=== PATIENT | female | born 1990 | race American Indian/Alaskan Native ===

== ENCOUNTER 2021-03-06 13:49 | Outpatient (CLI) | payer MEDICAID ==
[2021-03-06] MEDS ORDERED: LACTATED RINGERS 1,000 ML IV ONE (14:59)
[2021-03-06 15:14] VITALS: BP 107/55
[2021-03-06 15:28] LABS: Bilirubin,Urine NEG (Negative); Blood,Urine NEG (Negative); Color,Urine Amber (Yellow); Mucus,Urine FEW /HPF; Protein,Urine <15 mg/dL mg/dL (Negative); Urobilinogen,Urine < 2.0 mg/dL (<2.0)
--- NOTE | 2021-03-06 18:59 | Ultrasound Report ---
ULTRASOUND ABDOMEN, COMPLETE INDICATION: abd. pain. COMPARISON: None available. FINDINGS: Pancreas: Normal. Abdominal Aorta: Normal. IVC: Normal. Liver: Normal. Gallbladder: Normal. Bile ducts: Normal. Common Bile Duct measures 2.2 mm. Right Kidney: Moderate hydronephrosis. Left Kidney: Normal. Spleen: Normal. Free fluid: None. Additional Findings: None. IMPRESSION: 1. Moderate right hydronephrosis. 2. No gallstones or biliary dilatation. Signer Name: Zane Kaur MD Signed: 03/06/2021 6:55 PM Workstation Name: [id number]
--- NOTE | 2021-03-06 19:52 | Ultrasound Report ---
ULTRASOUND OBSTETRIC LIMITED INDICATION / CLINICAL INFORMATION: well being. Clinical Gestational Age (GA) in weeks, days: 21 weeks TECHNIQUE: Transabdominal. COMPARISON: None available. FINDINGS: HEART RATE (beats per minute): 133 AMNIOTIC FLUID INDEX (cm) = subjectively normal. EFRAIN not measured. (normal = 7-24 cm) PRESENTATION: Cephalic. ADDITIONAL FINDINGS: Placenta is located posteriorly with grade of 0. No evidence of abruption. IMPRESSION: 1. Single viable IUP in a cephalic presentation with posterior placenta and normal amount of amniotic fluid volume subjectively noted. Signer Name: Cecile Roman MD Signed: 03/06/2021 7:48 PM Workstation Name: [id number]
[2021-03-06] MEDS ORDERED: LIDOCAINE-MPF (1%) 10 MG/1 ML VIAL 5 ML INFILTRATI ONE (20:21)
== END 2021-03-06 21:30 | disposition home or self-care (01) ==
LOC: TRG 13:49 → APU 13:52 → TRG 21:30
PROVIDERS: ATTEND Obstetrics & Gynecology
DX: O26.892 Other specified pregnancy related conditions, second trimester (principal); R10.9 Unspecified abdominal pain; R10.2 Pelvic and perineal pain; M54.9 Dorsalgia, unspecified; Z3A.21 21 weeks gestation of pregnancy
CPT/HCPCS: 59025; 76700; 76815; 81001; 87086; 96372; J0696; 96360

== ENCOUNTER 2021-12-28 20:58 | Emergency (ER) | payer MEDICAID ==
[2021-12-28 21:44] VITALS: BP 153/98
[2021-12-28 23:11] LABS: Basophils % (Auto) 1.1 % (0.0-1.8); Eosinophils # (Auto) 0.2 K/mm3 (0.0-0.4); Eosinophils % (Auto) 5.1 % (0.0-4.3); Hematocrit 41.2 % (30.3-42.9); Hemoglobin 13.9 gm/dl (10.1-14.3); Lymphocytes # (Auto) 1.6 K/mm3 (1.2-5.4); Mean Corpuscular HGB Conc 34 % (30-34); Mean Corpuscular Volume 96 fl (79-97); Monocytes # (Auto) 0.4 K/mm3 (0.0-0.8); Monocytes % (Auto) 10.8 % (0.0-7.3); Platelet Count 182 K/mm3 (140-440); Red Cell Distribution Width 14.1 % (13.2-15.2)
== END 2021-12-30 03:55 | disposition left against medical advice (07) ==
LOC: ED 20:58
DX: R10.9 Unspecified abdominal pain (principal); Z53.21 Procedure and treatment not carried out due to patient leaving prior to being seen by health care provider
CPT/HCPCS: 36415; 84702; 85025